=== PATIENT | female | born 1945 | race Caucasian/White ===

== ENCOUNTER → 2017-07-23 | Outpatient (CLI) | payer MEDICARE ==
[~2017-07-23] MED LIST: AMLODIPINE5 MG PO; ASPIR-LOW81 MG PO; ASPIR-LOX325 MG PO; ASPIRIN 32325 MG/TAB PO; ASPIRIN E.C. 8181 MG PO; ATACAND16 MG PO; BIOTIN1 POW; CALCIUM + D 6001 TA1 PO; CALCIUM + D 6001 TAB PO; CALCIUM CARBONATE; CALTRATE-600 W600 MG PO; CELEXA 20MG20 MG/TAB PO; CHELATED IRON27 MG PO; CHOLESTEROL MA600 MG PO; CLARITIN 1010 MG/TAB PO; COZAAR 50MG50 MG/TAB PO; COZAAR50 MG PO; CRESTOR40 MG PO; D-31000 IU PO; DEXILANT30 MG PO; DIOVAN80 MG PO; EC NAPROSYN500 MG PO; EFFIENT10 M1 PO; EFFIENT10 MG PO; ELITE MAGNESIUM1 TAB PO; FERROUS SU325 MG/TAB PO; FISH OIL CONC1000 MG PO; FISH OIL O1600 MG/5 PO; FISH OIL1 IU PO; FLOMAX 0.40.4 MG/CAP PO; FLOVENT DI50 MCG/Act IH; GLUCOPHAGE500 MG/TAB PO; HCTZ 25MG25 MG PO; HCTZ PO; HCTZ12.5TAB PO; HYDROCODONE BIT1 TA3 PO; IBUPROFEN400 MG PO; LEVOTHYROXIN0.112 MG PO; LEVOXYL0.1 MG PO; LEVOXYL0.125 MG PO; LIDOCAINE; LIPITOR40 MG PO; LISINOPRIL/HCTZ1 TAB PO; LOPRESSOR 550 MG/TAB PO; LOPRESSOR50 MG PO; LOVASTATIN20 MG PO; Levoxyl; MAGNESIUM200 MG PO; METFORMIN HCL500 M1 PO; METFORMIN500 MG PO; METOPROLOL25 MG PO; MIRALAX PA17 GM/Dose PO; MOTRIN400 MG PO; MULTIPLE VITAMI1 CAP PO; MVI; MYLANTA; NAPROSYN PO; NEURONTIN300 MG/CAP PO; NIACIN TIME RE500 MG PO; NIACIN500 M3 PO; NIACINOL500 MG PO; NORVASC 5MG5 MG/TAB PO; NORVASC5 MG PO; OMEPRAZOLE D/R20 MG PO; PERCOCET 325 MG1 TA2 PO; PERCOCET 5/321 UDTAB PO; PLAVIX 75MG TAB75 MG PO; PRAVACHOL 40MG40 MG PO; PRAVASTATIN40 MG PO; PRILOSEC 20MG20 MG PO; PROTONIX 40MG T40 MG PO; RED RICE YEAST E0.4%; REQUIP 1MG T1 MG/TAB PO; REQUIP2 MG PO; ROPINIROLE HYDRO2 MG PO; SERTRALINE100 MG PO; TOPROL XL100 MG PO; TRAMADOL PO; TRAZADONE HYDR100 MG PO; TUMS500 MG PO; TYLENOL 325MG325 MG PO; TYLENOL W/COD1 UDTAB PO; ULTRAM50 MG PO; VITAMIN B12; VITAMIN B12500 MCG PO; VITAMIN C BUFF500 MG PO; VITAMIN C500 MG PO; VITAMIN D1000 IU PO; ZOLOFT 100MG100 MG PO; ZOLOFT 50MG50 MG PO; ZOLOFT50 MG PO; [UNRECOGNIZED DRUG - OTHER] PO
== END ==
LOC: MC.RAD 11:08
DX: Z12.31 Encounter for screening mammogram for malignant neoplasm of breast (principal)

== ENCOUNTER 2018-01-01 06:34 | Day surgery (SDC) | payer MEDICARE ==
[2018-01-01] VITALS (10 sets, daily range): BP systolic 107–143; BP diastolic 44–63; PULSE 55–69; TEMP 97.7–98
[~2018-01-01] VITALS: Ht 167.6 cm; Wt 101.3 kg
[2018-01-01] MEDS ORDERED: PLAVIX 75MG TAB75 MG PO (06:59)
[2018-01-01] MEDS ORDERED: SYNTHROID0.112 MG/T PO (07:01)
[2018-01-01] MEDS ORDERED: HCTZ 25MG TAB25 MG PO (07:04)
[2018-01-01] MEDS ORDERED: CRESTOR40 MG PO (07:06)
[2018-01-01] MEDS ORDERED: ZANTAC 150MG T150 MG PO (07:07)
[2018-01-01] MEDS ORDERED: SOOLANTRA TD (07:07)
[2018-01-01] MEDS ORDERED: GAVISCON F1 TAB.CHEW PO (07:08)
[2018-01-02] VITALS: BP 113/52; PULSE 67; TEMP 97.7
[2018-01-02 04:00] VITALS: BP 120/52; PULSE 62; TEMP 97.6
[2018-01-02 07:16] VITALS: BP 121/53; PULSE 75; TEMP 98.6
[2018-01-02] MEDS ORDERED: NORCO 325 MG-51 TAB PO (08:18)
== END 2018-01-02 10:07 | disposition home or self-care (01) ==
LOC: SDCO 06:34 → SURG 12:00 → SDCO 01-02 10:07
DX: K21.0 Gastro-esophageal reflux disease with esophagitis (principal); K44.9 Diaphragmatic hernia without obstruction or gangrene; I10 Essential (primary) hypertension; E11.9 Type 2 diabetes mellitus without complications; Z79.84 Long term (current) use of oral hypoglycemic drugs; Z85.828 Personal history of other malignant neoplasm of skin; Z88.5 Allergy status to narcotic agent; Z88.8 Allergy status to other drugs, medicaments and biological substances; E03.9 Hypothyroidism, unspecified; I25.10 Atherosclerotic heart disease of native coronary artery without angina pectoris
CPT/HCPCS: OP; J0330; J0690; J1100; J1885; J2175; J2270; J2405; J2704; J2710; J3010; J7030; J7120

== ENCOUNTER → 2019-01-13 | Outpatient (CLI) | payer MEDICARE ==
[~2019-01-13] MED LIST changes: +GAVISCON F1 TAB.CHEW PO; +HCTZ 25MG TAB25 MG PO; +NORCO 325 MG-51 TAB PO; +SOOLANTRA TD; +SYNTHROID0.112 MG/T PO; +ZANTAC 150MG T150 MG PO
== END ==
LOC: MC.RAD 10:59
DX: Z12.31 Encounter for screening mammogram for malignant neoplasm of breast (principal)

== ENCOUNTER → 2019-03-10 | Outpatient (CLI) | payer MEDICARE | LOC: COL.RAD 10:30 | DX: K21.9 Gastro-esophageal reflux disease without esophagitis (principal); R68.81 Early satiety ==

== ENCOUNTER → 2019-03-11 | Outpatient (CLI) | payer MEDICARE | LOC: COL.RAD 07:51 | DX: K21.9 Gastro-esophageal reflux disease without esophagitis (principal) | CPT/HCPCS: A9541 ==

== ENCOUNTER → 2020-03-02 | Outpatient (CLI) | payer MEDICARE | LOC: MC.RAD 16:51 | DX: Z12.31 Encounter for screening mammogram for malignant neoplasm of breast (principal) ==

== ENCOUNTER → 2020-09-23 | Outpatient (CLI) | payer MEDICARE | LOC: COL.RAD 09:41 | DX: K82.8 Other specified diseases of gallbladder (principal) | CPT/HCPCS: A9537; J2805 ==

== ENCOUNTER → 2021-03-04 | Outpatient (CLI) | payer MEDICARE ==
[~2021-03-04] MED LIST changes: +CALCIUM WITH D31 CTB PO; +CRESTOR20 MG PO; +LEXAPRO 10MG10 MG PO; +METROGEL GEL45 GM TP; +MULTIPLE VITAMI1 TA5 PO; +PEPCID 20MG TAB20 MG PO; +VITAMIN D31000 I1 PO; +VITAMINC1000TA PO
== END ==
LOC: MC.RAD 10:45
DX: Z12.31 Encounter for screening mammogram for malignant neoplasm of breast (principal)

== ENCOUNTER → 2022-03-17 | Outpatient (CLI) | payer MEDICARE | LOC: MC.RAD 11:04 | DX: Z12.31 Encounter for screening mammogram for malignant neoplasm of breast (principal) ==

== ENCOUNTER 2022-10-13 09:12 | Emergency (ER) | payer MEDICARE ==
[~2022-10-13] VITALS: Ht 167.6 cm; Wt 90.9 kg
[2022-10-13 09:35] VITALS: TEMP 98.3
[2022-10-13 10:13] LABS: BASO % 0.4 % (0.0-2.0); EOS # 0.2 K/mm3 (0.0-0.7); EOS % 2.6 % (0.0-4.0); GRAN % 51.5 % (42.2-75.2); HEMOGLOBIN 12.3 g/dl (12.5-16.0); LYMPH % 38.4 % (20.0-51.0); MEAN CELL VOLUME 87 fl (80.0-100.0); MEAN CORPUSCULAR HEMOGLOBIN 29 pg (27-31); MEAN CORPUSCULAR HGB CONC 33 g/dl (33.0-37.0); MEAN PLATELET VOLUME 9.7 fl (7.4-10.4); MONO # 0.5 K/mm3 (0.1-0.6); MONO % 6.8 % (1.7-9.3); PLATELET COUNT 329 K/mm3 (130-400); RED BLOOD COUNT 4.23 M/mm3 (4.10-5.30); REDCELL DISTRIBUTION WIDTH-CV 13.6 % (11.5-14.5)
[2022-10-13 10:15] LABS: HEMATOCRIT 36.9 % (37.0-47.0)
[2022-10-13 10:48] LABS: ALBUMIN 3.7 gm/dL (3.4-4.8); BILIRUBIN,TOTAL 0.5 mg/dL (0.2-1.2); CALCIUM 8.9 mg/dL (8.4-10.2); CREATININE, serum 0.83 mg/dL (0.57-1.11); POTASSIUM 3.7 mmol/L (3.5-4.5); TOTAL PROTEIN 6.9 gm/dL (6.2-8.1)
[2022-10-13 12:03] LABS: COLLECTION METHOD CATHETER
[2022-10-13 12:09] LABS: PH 5.5 (5.0-8.5); URINE APPEARANCE Clear (CLEAR/HAZY); URINE BLOOD 1+ (NEGATIVE); URINE COLOR Yellow (YELLOW); URINE GLUCOSE Negative (NEGATIVE); URINE KETONE Negative (NEGATIVE); URINE NITRATE Negative (NEGATIVE); URINE PROTEIN(semi-quant) Negative (NEGATIVE); URINE UROBILINOGEN 0.2 E.U/dL (0.2-1.0)
[2022-10-13 12:11] LABS: MUCOUS Present (NOT PRESENT); SQUAMOUS EPITHELIAL 0-2 /hpf (0-10); URINE BACTERIA None Seen /hpf (NONE SEEN)
[2022-10-13 12:40] VITALS: BP 155/74; PULSE 54
== END 2022-10-13 12:42 | disposition home or self-care (01) ==
LOC: COL.ER 09:12
PROVIDERS: Emergency Medicine
DX: K62.5 Hemorrhage of anus and rectum (principal); R91.8 Other nonspecific abnormal finding of lung field; K44.9 Diaphragmatic hernia without obstruction or gangrene; R33.9 Retention of urine, unspecified
CPT/HCPCS: Q9967

== ENCOUNTER → 2023-08-13 | Outpatient (CLI) | payer MEDICARE | LOC: MC.RAD 10:49 | DX: Z12.31 Encounter for screening mammogram for malignant neoplasm of breast (principal) ==